=== PATIENT | female | born 1960 | race Caucasian/White ===

== ENCOUNTER 2016-08-15 07:07 | Emergency (ER) | payer OTHER ==
[~2016-08-15] VITALS: Ht 154.9 cm; Wt 54.5 kg
[2016-08-15] MEDS ORDERED: PROP10 PO (07:12)
[2016-08-15] MEDS ORDERED: ALBU8.5H IH (07:12)
[2016-08-15] MEDS ORDERED: PredniSONE 20 MG TABLET PO ONE (07:30)
[2016-08-15] MEDS ORDERED: IPRATROPIUM BROMIDE 0.5 MG/2.5 ML NEB SOLUTION NEB ONE (07:30)
[2016-08-15] MEDS ORDERED: ALBUTEROL SULFATE 5 MG/ML 20 ML NEB SOLN [BULK] NEB ONE (07:30)
[2016-08-15] MEDS ORDERED: ALBUTEROL SULFATE HFA 90 MCG/PUFF 8 GM INHALER IH ONE (08:30)
[2016-08-15 09:13] VITALS: BP 38/75
== END 2016-08-15 09:14 | disposition home or self-care (01) ==
LOC: EMS 07:09
DX: J45.901 Unspecified asthma with (acute) exacerbation (principal); I10 Essential (primary) hypertension
CPT/HCPCS: 94644; 99285; J7512; J3535